=== PATIENT | female | born 1995 | race Caucasian/White ===

== ENCOUNTER 2023-06-01 06:40 | Emergency (ER) | payer MEDICAID ==
[~2023-06-01] VITALS: Ht 160 cm; Wt 77.1 kg
[2023-06-01 06:51] VITALS: BP_SYST 125; PULSE 85; RESP 17; O2SAT 98
[2023-06-01] MEDS ORDERED: NABU-140 PO (07:22)
[2023-06-01] MEDS ORDERED: IBUPROFEN 600 MG TABLET PO ONE (07:30)
[2023-06-01 07:56] VITALS: BP_SYST 125; PULSE 85; RESP 17; TEMP 97.8; O2SAT 98
== END 2023-06-01 07:54 | disposition home or self-care (01) ==
LOC: SED 06:40
DX: S63.281A Dislocation of proximal interphalangeal joint of left index finger, initial encounter (principal); Z79.899 Other long term (current) drug therapy; W10.9XXA Fall (on) (from) unspecified stairs and steps, initial encounter; Y93.89 Activity, other specified; Y92.89 Other specified places as the place of occurrence of the external cause; Y99.8 Other external cause status
CPT/HCPCS: 99284